=== PATIENT | male | born 1970 | race Caucasian/White ===

== ENCOUNTER 2016-10-06 01:22 | Emergency (ER) | payer SELFPAY ==
[~2016-10-06] VITALS: Ht 177.8 cm; Wt 96.6 kg
[2016-10-06 02:14] LABS: HEMATOCRIT 48.5 % (38.0-50.0); MCH 28.9 PG (29.0-34.0); MCHC 33.2 G/DL (30.0-36.0); MCV 86.9 FL (86-99); MEAN PLAT.VOLUME 8.8 uM^3 (9.0-12.4); PLATELET COUNT 344 K/uL (156-360); RBC DIS.WIDTH-CV 12.6 % (11.8-14.6); RBC DIS.WIDTH-SD 39.8 % (39-53); RED BLOOD COUNT 5.58 M/uL (4.00-5.50)
[2016-10-06 02:28] LABS: CHLORIDE 109 mEq/L (99-109); POTASSIUM 4.6 mEq/L (3.7-5.4); SODIUM 146 mEq/L (136-147)
[2016-10-06 02:31] LABS: GLUCOSE 117 mg/dL (70-99)
[2016-10-06 02:32] LABS: ANION GAP 15 MEQ/L (2-14)
[2016-10-06 02:33] LABS: TOTAL BILIRUBIN 0.2 mg/dL (0.0-1.0)
[2016-10-06 02:34] LABS: ALKALINE PHOSPHATASE 69 IU/L (3-129); GFR ESTIMATE (CALCULATED) > 59 mL/min/; SERUM ETHYL ALCOHOL 215 mg/dL
[2016-10-06 02:36] LABS: UREA NITROGEN (BUN) 11 mg/dL (9-23)
[2016-10-06 05:24] VITALS: BP 130/68
== END 2016-10-06 05:25 ==
LOC: EME → EDBD 01:22 → EME 05:25
PROVIDERS: Emergency Medicine
PROC: 0JC70ZZ Extirpation of Matter from Back Subcutaneous Tissue and Fascia, Open Approach (ICD-10-PCS; principal; 2016-10-06)
DX: S21.249A Puncture wound with foreign body of unspecified back wall of thorax without penetration into thoracic cavity, initial encounter (principal); Y35.091A Legal intervention involving other firearm discharge, law enforcement official injured, initial encounter; Y92.89 Other specified places as the place of occurrence of the external cause; R09.02 Hypoxemia
CPT/HCPCS: 70450; 71275; 80053; 81003; 85027; 99281; 99283; G0480; J1630; J2060; J7030